=== PATIENT | female | born 2000 | race Two or more races ===

== ENCOUNTER 2021-08-14 18:48 | Emergency (ER) | payer BC ==
[~2021-08-14] VITALS: Ht 147.3 cm; Wt 77.0 kg
[2021-08-14 19:13] LABS: APPEARANCE,URINE CLEAR (CLEAR); BILIRUBIN,URINE NEGATIVE (NEGATIVE); GLUCOSE, URINE (UA) NEGATIVE (NEGATIVE); KETONES,URINE TRACE mg/dL (NEGATIVE); LEUKOCYTE ESTERASE ,URINE TRACE (NEGATIVE); NITRATE,URINE NEGATIVE (NEGATIVE); OCCULT BLOOD,URINE NEGATIVE (NEGATIVE); PH,URINE 5.5 (5.0-8.0); PROTEIN,URINE 30-70 mg/dL (NEGATIVE); SPECIFIC GRAVITIY, URINE 1.043 (1.003-1.030)
[2021-08-14] MEDS ORDERED: ACETAMINOPHEN 500 MG TABLET PO ONE (19:15)
[2021-08-14 19:25] LABS: BACTERIA,URINE None Seen /HPF (None Seen); RBC,URINE 0-2 /HPF (0-2); WBC,URINE 0-2 /HPF (0-5)
[2021-08-14 19:26] LABS: CALCIUM OXALATE CRYSTALS,UR Moderate /LPF (None Seen); MUCUS,URINE Few LPF (None Seen); SQUAMOUS EPITHELIAL CELL,UR Few /LPF (None Seen)
[2021-08-14 19:27] LABS: AMPHET/METH SCREEN,URINE NEGATIVE (NEGATIVE); BARBITURATE SCREEN, URINE NEGATIVE (NEGATIVE); BENZODIAZEPINES SCREEN,URINE NEGATIVE (NEGATIVE); CANNABINOID SCREEN,URINE NEGATIVE (NEGATIVE); COCAINE SCREEN,URINE NEGATIVE (NEGATIVE); METHADONE SCREEN, URINE NEGATIVE (NEGATIVE); OPIATE SCREEN,URINE NEGATIVE (NEGATIVE)
[2021-08-14 19:28] LABS: PHENCYCLIDINE SCREEN,URINE NEGATIVE (NEGATIVE)
[2021-08-14] MEDS ORDERED: PHENAZOPYRIDINE HCL 100 MG TABLET PO ONE (19:45)
[2021-08-14] MEDS ORDERED: LIDOCAINE/PF 1% 2 ML VIAL IM ONE (19:45)
[2021-08-14] MEDS ORDERED: CefTRIAXone SODIUM 1 GM/VIAL IM ONE (19:45)
[2021-08-14] MEDS ORDERED: AZITHROMYCIN 500 MG TABLET PO ONE (19:45)
[2021-08-14 20:08] VITALS: BP 129/74
== END 2021-08-14 20:15 | disposition home or self-care (01) ==
LOC: EMS 18:48
DX: N34.2 Other urethritis (principal); R00.0 Tachycardia, unspecified; Z98.890 Other specified postprocedural states; Z88.8 Allergy status to other drugs, medicaments and biological substances
CPT/HCPCS: 80307; 81001; 84703; 96372; 99284; J0696; J3490; Q9967

== ENCOUNTER 2023-02-23 17:09 | Emergency (ER) | payer BC, MEDICAID ==
[~2023-02-23] VITALS: Ht 154.9 cm; Wt 86.4 kg
[2023-02-23] MEDS ORDERED: ALBU18HF12 IH ×3 (17:22→20:56)
[2023-02-23 17:31] LABS: COVID AG,FIA SOURCE NASAL SWAB
[2023-02-23 17:39] LABS: SARS-COV2 (COVID) ANTIGEN,FIA Negative (Negative)
[2023-02-23 17:42] LABS: INFLUENZA TYPE A NEGATIVE FOR TYPE A (NEGATIVE); INFLUENZA TYPE B NEGATIVE FOR TYPE B (NEGATIVE)
[2023-02-23] MEDS ORDERED: ACETAMINOPHEN 500 MG TABLET PO ONE (20:00)
[2023-02-23] MEDS ORDERED: BENZONATATE 100 MG CAPSULE PO ONE (20:00)
[2023-02-23] MEDS ORDERED: GuaiFENesin/D-METHORPHAN [SUGAR-FREE] 200-20MG/10 ML SYRUP UDCUP PO ONE (20:00)
[2023-02-23 20:11] VITALS: PULSE 118; RESP 25; O2SAT 99
[2023-02-23] MEDS ORDERED: GUAIFDM PO ×2 (20:15→20:56)
[2023-02-23] MEDS ORDERED: ALBUTEROL SULFATE 2.5 MG/0.5 ML NEB SOLUTION NEB ONE (20:15)
[2023-02-23] MEDS ORDERED: IPRATROPIUM BROMIDE 0.5 MG/2.5 ML NEB SOLUTION NEB ONE (20:15)
[2023-02-23] MEDS ORDERED: CEPH-558 PO ×2 (20:15→20:56)
[2023-02-23] MEDS ORDERED: ACET-66 PO ×2 (20:15→20:56)
[2023-02-23 20:43] VITALS: BP 139/67; PULSE 96; RESP 18; TEMP 98.5
== END 2023-02-23 20:45 | disposition home or self-care (01) ==
LOC: EMS 17:46
DX: J20.9 Acute bronchitis, unspecified (principal); J06.9 Acute upper respiratory infection, unspecified; H66.91 Otitis media, unspecified, right ear; Z98.890 Other specified postprocedural states; Z88.8 Allergy status to other drugs, medicaments and biological substances; Z20.822 Contact with and (suspected) exposure to COVID-19
CPT/HCPCS: 99284; 87426; 87804; 94640; C9803; J7613; Z7502; Z7610

== ENCOUNTER 2025-03-13 15:08 | Inpatient (IN) | payer OTHER ==
[~2025-03-13] VITALS: Ht 149.9 cm; Wt 109.9 kg
[2025-03-13 15:45] LABS: COVID AG,FIA SOURCE NASAL SWAB
[2025-03-13 16:08] LABS: SARS-COV2 (COVID) ANTIGEN,FIA Negative (Negative)
[2025-03-13 16:09] LABS: INFLUENZA TYPE A NEGATIVE FOR TYPE A (NEGATIVE); INFLUENZA TYPE B NEGATIVE FOR TYPE B (NEGATIVE)
[2025-03-13] MEDS: MORPHINE SULFATE 2 MG/ML SYRINGE IVP ONE ×2 (16:50→20:54)
[2025-03-13] MEDS: FAMOTIDINE 20 MG/2 ML VIAL IVP ONE (16:50)
[2025-03-13] MEDS: SODIUM CHLORIDE 0.9% 1,000 ML IV ONE (16:51)
[2025-03-13] MEDS: ONDANSETRON HCL 4 MG/2 ML VIAL IVP ONE (16:51)
[2025-03-13 16:54] LABS: PLATELET COUNT (AUTO) 311 K/uL (150-450); RED BLOOD CELL COUNT(AUTO) 5.31 MIL/uL (4.00-5.20); RED CELL DISTRIBUTION WIDTH 13.8 % (11.5-14.5); WHITE BLOOD COUNT (AUTO) 8.3 K/uL (4.5-11.0)
[2025-03-13 17:09] LABS: CALCIUM, TOTAL 8.8 mg/dL (8.8-10.5); CREATININE 0.80 mg/dL (0.60-1.30); GLOMERULAR FILTR. RATE CALC > 60 mL/min (>60); GLUCOSE,RANDOM 112 mg/dL (70-110); SODIUM SERUM 140 mmol/L (136-145); UREA NITROGEN, BLOOD 9 mg/dL (7-18)
[2025-03-13 17:14] LABS: ASPARTATE AMINOTRANSFERASE 25.0 U/L (15-37); HCG,QUANTITATIVE 1.0 mIU/mL (0-6); TOTAL PROTEIN, SERUM 7.8 g/dL (6.4-8.2)
[2025-03-13 20:00] LABS: APPEARANCE,URINE HAZY (CLEAR); GLUCOSE, URINE (UA) NEGATIVE (NEGATIVE); LEUKOCYTE ESTERASE ,URINE NEGATIVE (NEGATIVE); NITRATE,URINE NEGATIVE (NEGATIVE); OCCULT BLOOD,URINE MODERATE (NEGATIVE); SPECIFIC GRAVITIY, URINE 1.009 (1.003-1.030)
[2025-03-13 20:26] LABS: SQUAMOUS EPITHELIAL CELL,UR Few /LPF (None Seen)
[2025-03-13] MEDS: PIPERACILLIN/TAZO 3.375 GM/D5W 50 ML IV ONE (20:55)
[2025-03-13 23:45] VITALS: BP 153/80; PULSE 79; RESP 18; TEMP 100; O2SAT 100
[2025-03-13] MEDS ORDERED: BUPR-345 PO (23:45)
[2025-03-14] VITALS (7 sets, daily range): BP systolic 116–172; BP diastolic 63–100; PULSE 61–87; RESP 15–18; TEMP 97.9–99.3; O2SAT 94–99
[2025-03-14] MEDS ORDERED: HYDROCODONE/ACETAMINOPHEN 5-325 MG TABLET PO PRN (00:45)
[2025-03-14] MEDS ORDERED: IPRATROPIUM BROMIDE 0.5 MG/2.5 ML NEB SOLUTION NEB PRN (00:45)
[2025-03-14] MEDS ORDERED: MAGNESIUM HYDROXIDE SUSPENSION 30 ML UDCUP PO PRN (00:45)
[2025-03-14] MEDS ORDERED: ZOLPIDEM TARTRATE 5 MG TABLET PO PRN (00:45)
[2025-03-14] MEDS ORDERED: ALBUTEROL SULFATE 2.5 MG/0.5 ML NEB SOLUTION NEB PRN (00:45)
[2025-03-14] MEDS ORDERED: BISACODYL 10 MG RECTAL RECTAL SUPPOSITORY PR PRN (00:45)
[2025-03-14] MEDS: MORPHINE SULFATE 4 MG/ML SYRINGE IVP PRN (01:00)
[2025-03-14] MEDS: DEXTROSE 5%-0.45% SODIUM CHL 1,000 ML IV SCH (01:00)
[2025-03-14] MEDS: CefTRIAXone 1 GM/DEXTROSE 50 ML IV SCH (02:09)
[2025-03-14] MEDS: HEPARIN SODIUM,PORCINE 5,000 UNITS/ML VIAL SQ SCH (08:00)
[2025-03-14] MEDS: PANTOPRAZOLE SODIUM 40 MG DR TABLET PO SCH (08:13)
[2025-03-14] MEDS ORDERED: SODIUM CHLORIDE 0.9% 1,000 ML ONE (11:07)
[2025-03-14] MEDS ORDERED: RINGERS SOLUTION,LACTATED 1,000 ML IV ONE (11:53)
[2025-03-14] MEDS ORDERED: MEPERIDINE-PF 25 MG/ML VIAL IVP PRN (12:00)
[2025-03-14] MEDS: BUPIVACAINE 0.25%/EPI 1:200,000/PF 30 ML VIAL ONE (12:29)
[2025-03-14] MEDS ORDERED: FentaNYL CITRATE PF 100 MCG/2 ML VIAL ONE (13:31)
[2025-03-14] MEDS: FentaNYL CITRATE PF 100 MCG/2 ML VIAL IVP PRN (13:35)
[2025-03-14] MEDS: ACETAMINOPHEN 1000 MG/ISO-OSM 100 ML IV ONE (13:57)
[2025-03-14] MEDS: ACETAMINOPHEN 500 MG TABLET PO SCH (15:00)
[2025-03-14] MEDS ORDERED: BUPR-225 PO (15:51)
[2025-03-14] MEDS: OxyCODONE HCL 5 MG IR TABLET PO PRN (18:20)
[2025-03-14 20:47] LABS: TROPONIN I-HIGH SENSITIVITY 420 ng/L (<51)
[2025-03-14] MEDS: BuPROPion HCL 100 MG SR TABLET PO SCH (22:57)
[2025-03-14] MEDS: ONDANSETRON HCL 4 MG/2 ML VIAL IVP PRN (22:57)
[2025-03-15] VITALS (7 sets, daily range): BP systolic 119–152; BP diastolic 74–107; PULSE 70–110; RESP 17–20; TEMP 98.4–99.7; O2SAT 95–98
[2025-03-15] MEDS: OxyCODONE HCL 5 MG IR TABLET PO PRN (01:15)
[2025-03-15] MEDS: OXYGEN THERAPY IH SCH (07:15)
[2025-03-15 08:19] LABS: TROPONIN I-HIGH SENSITIVITY 810 ng/L (<51)
[2025-03-15] MEDS: ACETAMINOPHEN 325 MG TABLET PO PRN (08:20)
[2025-03-15] MEDS ORDERED: 0.9% SODIUM CHLORIDE 10 ML SYRINGE IVP ONE (09:38)
[2025-03-15] MEDS ORDERED: IOHEXOL 350 MG/ML 100 ML VIAL ONE (09:38)
[2025-03-15 14:24] LABS: PLATELET COUNT (AUTO) 327 K/uL (150-450); RED BLOOD CELL COUNT(AUTO) 5.37 MIL/uL (4.00-5.20); RED CELL DISTRIBUTION WIDTH 14.2 % (11.5-14.5); WHITE BLOOD COUNT (AUTO) 10.7 K/uL (4.5-11.0)
[2025-03-15 14:39] LABS: CALCIUM, TOTAL 8.2 mg/dL (8.8-10.5); CREATININE 0.60 mg/dL (0.60-1.30); GLOMERULAR FILTR. RATE CALC > 60 mL/min (>60); GLUCOSE,RANDOM 144 mg/dL (70-110); SODIUM SERUM 138 mmol/L (136-145); UREA NITROGEN, BLOOD 4 mg/dL (7-18)
[2025-03-15 14:44] LABS: ASPARTATE AMINOTRANSFERASE 46 U/L (15-37); TOTAL PROTEIN, SERUM 7.1 g/dL (6.4-8.2)
[2025-03-15 15:04] LABS: TROPONIN I-HIGH SENSITIVITY 1065 ng/L (<51)
[2025-03-16 03:16] VITALS: BP 135/73; PULSE 94; RESP 18; TEMP 98.4; O2SAT 97
[2025-03-16] MEDS ORDERED: POTASSIUM CHL 10 MEQ/WATER 50 ML IV PRN (06:00)
[2025-03-16] MEDS: POTASSIUM CHLORIDE 20 MEQ ER TABLET PO PRN (06:02)
[2025-03-16 06:15] LABS: ASPARTATE AMINOTRANSFERASE 32 U/L (15-37); CALCIUM, TOTAL 8.3 mg/dL (8.8-10.5); CREATININE 0.86 mg/dL (0.60-1.30); GLOMERULAR FILTR. RATE CALC > 60 mL/min (>60); GLUCOSE,RANDOM 127 mg/dL (70-110); SODIUM SERUM 139 mmol/L (136-145); TOTAL PROTEIN, SERUM 6.8 g/dL (6.4-8.2); UREA NITROGEN, BLOOD 4 mg/dL (7-18)
[2025-03-16 06:41] LABS: PLATELET COUNT (AUTO) 347 K/uL (150-450); RED BLOOD CELL COUNT(AUTO) 5.21 MIL/uL (4.00-5.20); RED CELL DISTRIBUTION WIDTH 14.3 % (11.5-14.5); WHITE BLOOD COUNT (AUTO) 9.3 K/uL (4.5-11.0)
[2025-03-16 06:48] LABS: TROPONIN I-HIGH SENSITIVITY 489 ng/L (<51)
[2025-03-16 07:18] VITALS: BP 124/66; PULSE 92; RESP 18; TEMP 98.6; O2SAT 98
[2025-03-16] MEDS ORDERED: DEXAMETHASONE SOD PHOS 4 MG/ML VIAL IVP ONE (07:40)
[2025-03-16] MEDS ORDERED: ONDANSETRON HCL 4 MG/2 ML VIAL IVP ONE (07:40)
[2025-03-16] MEDS ORDERED: PROPOFOL 1% 20 ML VIAL IVP ONE (07:40)
[2025-03-16] MEDS ORDERED: SUGAMMADEX SODIUM 200 MG/2 ML VIAL IVP ONE (07:40)
[2025-03-16] MEDS ORDERED: LIDOCAINE/PF 2% 5 ML VIAL IM ONE (07:40)
[2025-03-16] MEDS ORDERED: ROCURONIUM BROMIDE 10 MG/ML 5 ML VIAL IVP ONE (07:40)
[2025-03-16] MEDS ORDERED: METOPROLOL TARTRATE 5 MG/5 ML VIAL IVP ONE (07:40)
[2025-03-16] MEDS ORDERED: 0.9% SODIUM CHLORIDE 10 ML VIAL IVP ONE (07:40)
[2025-03-16] MEDS ORDERED: ALBUTEROL SULFATE HFA 90 MCG/PUFF 8 GM INHALER IH ONE (07:40)
[2025-03-16] MEDS ORDERED: MORPHINE SULFATE/PF 0.5 MG/ML 10 ML AMP IVP ONE (07:46)
[2025-03-16] MEDS ORDERED: FentaNYL CITRATE PF 100 MCG/2 ML VIAL IVP ONE (07:46)
[2025-03-16] MEDS ORDERED: MIDAZOLAM HCL 2 MG/2 ML VIAL IVP ONE (07:46)
[2025-03-16 11:05] VITALS: BP 135/78; PULSE 87; RESP 19; TEMP 98.2; O2SAT 97
[2025-03-16 15:34] VITALS: BP 146/68; PULSE 110; RESP 19; TEMP 98.8; O2SAT 97
== END 2025-03-16 17:00 | disposition home or self-care (01) | DRG 263 ==
LOC: EMS 15:08 → EDH 21:53 → 4E 23:30 → 5N 03-14 19:49
PROVIDERS: ADMIT Hospitalist; ATTEND Hospitalist
PROC: 0FT44ZZ Resection of Gallbladder, Percutaneous Endoscopic Approach (ICD-10-PCS; principal; 2025-03-13)
DX: K80.12 Calculus of gallbladder with acute and chronic cholecystitis without obstruction (principal); E83.51 Hypocalcemia; N39.0 Urinary tract infection, site not specified; E66.9 Obesity, unspecified; I10 Essential (primary) hypertension; J45.909 Unspecified asthma, uncomplicated; R79.89 Other specified abnormal findings of blood chemistry; K66.0 Peritoneal adhesions (postprocedural) (postinfection); Z20.822 Contact with and (suspected) exposure to COVID-19; K42.9 Umbilical hernia without obstruction or gangrene; K82.8 Other specified diseases of gallbladder; Z63.4 Disappearance and death of family member; Z68.42 Body mass index [BMI] 45.0-49.9, adult; Z79.899 Other long term (current) drug therapy; Z88.8 Allergy status to other drugs, medicaments and biological substances
CPT/HCPCS: 71275; 74176; 74177; 74181; 76705; 80048; 80053; 80076; 81001; 83690; 83735; 84132; 84484; 84702; 84703; 85025; 85730; 87086; 87804; 88304; 93005; 93306; 96361; 96365; 96375; 99285; G0238; G0378; J0131; J0690; J0696; J1100; J1171; J1644; J2250; J2270; J2274; J2405; J2543; J2704; J3010; J3490; J3535; J7030; J7120; 36415-L1; 36415-TC